=== PATIENT | female | born 1935 | race Caucasian/White ===

== ENCOUNTER 2017-08-06 09:40 | Outpatient (CLI) | payer MEDICARE, OTHER ==
--- NOTE | 2017-08-06 12:42 | CT ---
ABDOMEN CT WITH AND WITHOUT CONTRAST PELVIC CT WITH AND WITHOUT CONTRAST: Date: 08/06/17 HISTORY: Urinary tract infection for several months. Hematuria. COMPARISON: None. TECHNIQUE: Abdomen and pelvic CT performed with and without intravenous contrast administration. Coronal reforma tted images are submitted for interpretation. Enteric contrast was not administered. FINDINGS: ABDOMEN CT: There is scar/atelectasis in the lung bases. Heart size is normal. No pericardial effusion. The desce nding thoracic aorta and abdominal aorta have a normal caliber. No periaortic fat stranding. 9.0 mm nodule in the liver, too small to characterize. No masses in the liver. Spleen, pancreas, and adrenal glands have appropriate enhancement. Unremarkable gallbladder. Portal vein is patent. No gastrohepatic, retrocrural, or periportal lymphadenopathy. No mesenteric mass, lymphadenopathy, free air, or free fluid. Limited evaluation of the alimentary canal due to the absence of oral contrast. Gastric mucosa is unr emarkable. Multiple normal caliber small bowel loops. Ileocecal junction is normal. Normal caliber ap pendix. Fecal material is noted throughout the colon. Correlate for component of constipation. Divert iculosis in the left hemicolon. No evidence of diverticulitis. Bilaterally, no hydronephrosis, nephrolithiasis, or perinephric fat stranding. There is symmetric enh ancement of the kidneys. Areas of scarring in the mid left renal cortex are suspected. Symmetric excr etion into an unremarkable intra and extrarenal collecting systems. No hydroureter, periureteral fat stranding, or ureterolithiasis. PELVIC CT: Uterus and adnexal structures are unremarkable. No pelvic mass, lymphadenopathy, free air, or free fl uid. There is a small amount of contrast in the dependent portion of the urinary bladder. Mild mucosa l prominence of the urinary bladder may be due to inadequate distention. Correlate clinically for cys titis versus a mucosal based pathology. No lytic or blastic lesions of the osseous structures. IMPRESSION: 1. No evidence of nephrolithiasis or obstructive uropathy. 2. Mild mucosal prominence of the urinary bladder which may be due to inadequate distention. Conside r cystoscopy if clinically warranted. 3. Fecal material throughout the colon. Correlate for component of constipation. POS: [facility]
== END 2017-08-06 09:41 | disposition home or self-care (01) ==
LOC: SCSCT 09:40
PROVIDERS: ATTEND Urology
DX: R31.29 Other microscopic hematuria (principal); R82.71 Bacteriuria; R19.5 Other fecal abnormalities
CPT/HCPCS: 74178

== ENCOUNTER 2019-11-04 12:45 | Outpatient (CLI) | payer MEDICARE, OTHER ==
--- NOTE | 2019-11-04 14:23 | RAD ---
LEFT FOOT THREE VIEWS: 11/04/19 INDICATION: History of left foot edema. COMPARISON: None. 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 There is soft tissue prominenc e and calcification overlying the great toe MTP joint. There is scattered vascular calcifications. Li sfranc alignment is preserved. Enthesopathic change is seen off the posterior calcaneus. IMPRESSION: 1. Soft tissue swelling of the forefoot. 2. 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 3. Scattered osteoarthrosis of the right foot. POS: [facility]
== END 2019-11-04 12:46 | disposition home or self-care (01) ==
LOC: BICRAD 12:45
PROVIDERS: ATTEND Podiatrist
DX: R60.0 Localized edema (principal); M19.072 Primary osteoarthritis, left ankle and foot; M79.89 Other specified soft tissue disorders; M21.612 Bunion of left foot; M25.872 Other specified joint disorders, left ankle and foot